=== PATIENT | female | born 1940 | race Caucasian/White ===

== ENCOUNTER → 2016-08-21 | Outpatient (CLI) | payer MEDICARE, OTHER ==
--- NOTE | 2016-08-21 16:50 | RAD ---
DATE: 08/21/2016 EXAM: DIGITAL SCREEN BILAT W/CAD HISTORY: Routine screening COMPARISON: 08/19/2015 This study was interpreted with the benefit of Computerized Aided Detection (CAD). FINDINGS: The breasts are predominantly fatty replaced. No new or enlarging breast densities are seen. A few scattered benign type calcifications are present. No suspicious microcalcifications have developed. IMPRESSION: Stable mammograms without evidence of malignancy. BI-RADS CATEGORY: 2 BENIGN FINDING(S) RECOMMENDED FOLLOW-UP: 12M 12 MONTH FOLLOW-UP PQRS compliance statement: Patient information was entered into a reminder system with a target due date for the next mammogram. Mammography is a sensitive method for finding small breast cancers, but it does not detect them all and is not a substitute for careful clinical examination. A negative mammogram does not negate a clinically suspicious finding and should not result in delay in biopsying a clinically suspicious abnormality. "Our facility is accredited by the [employer] Mammography [employer]."
== END | disposition home or self-care (01) ==
LOC: MAMMO 13:53
PROVIDERS: ATTEND Family Medicine
DX: Z12.31 Encounter for screening mammogram for malignant neoplasm of breast (principal)
CPT/HCPCS: G0202; 77067

== ENCOUNTER → 2017-08-22 | Outpatient (CLI) | payer MEDICARE, OTHER | END | disposition home or self-care (01) | LOC: MAMMO 08:50 | DX: Z12.31 Encounter for screening mammogram for malignant neoplasm of breast (principal) | CPT/HCPCS: 77063; 77067 ==

== ENCOUNTER → 2018-08-27 | Outpatient (CLI) | payer MEDICARE ==
[2018-01-31 15:00] VITALS: BP 170/93
[~2018-08-27] MED LIST: ASPI-630 PO; LATA2.5D3 EACHEYE; LEVO50TA5 PO
--- NOTE | 2018-08-27 10:14 | RAD ---
DATE: 08/27/2018 EXAM: MAMMO MARYANA SCREENING BILATERAL HISTORY: Routine screening COMPARISON: 08/22/2017 This study was interpreted with the benefit of Computerized Aided Detection (CAD). Breast Density: FATTY The breast parenchyma is primarily fatty replaced. Breast parenchyma level density A. FINDINGS: 2-D and 3-D tomosynthesis imaging was performed in CC and MLO projections. There is a 3-4 mm smooth superficial nodule in the lateral aspect of the left breast as best seen on CC tomosynthesis images #32. No spiculated mass or architectural distortion is evident. Minimal benign type calcifications present. No suspicious microcalcifications are evident. IMPRESSION: Small superficial left breast nodule which may be skin related. Sonographic evaluation is suggested. BI-RADS CATEGORY: 0 INCOMPLETE: NEEDS ADDITIONAL IMAGING EVALUATION AND/OR PRIOR MAMMOGRAMS FOR COMPARISON. RECOMMENDED FOLLOW-UP: ADD ADDITIONAL IMAGING PQRS compliance statement: Patient information was entered into a reminder system with a target due date for the next mammogram. Mammography is a sensitive method for finding small breast cancers, but it does not detect them all and is not a substitute for careful clinical examination. A negative mammogram does not negate a clinically suspicious finding and should not result in delay in biopsying a clinically suspicious abnormality. "Our facility is accredited by the [employer] Mammography [employer]."
== END | disposition home or self-care (01) ==
LOC: MAMMO 07:35
PROVIDERS: ATTEND Family Medicine
DX: Z12.31 Encounter for screening mammogram for malignant neoplasm of breast (principal); N63.20 Unspecified lump in the left breast, unspecified quadrant
CPT/HCPCS: 77063; 77067

== ENCOUNTER → 2018-09-02 | Outpatient (CLI) | payer MEDICARE ==
[2018-01-31 15:00] VITALS: BP 170/93
--- NOTE | 2018-09-02 14:33 | RAD ---
DATE: 09/02/2018 EXAM: DIGITAL DIAGNOSTIC LT, BREAST LEFT HISTORY: Abnormal mammogram COMPARISON: 08/27/2018 screen mammographic exam This study was interpreted with the benefit of Computerized Aided Detection (CAD). Breast Density: SCATTERED The breast parenchyma shows scattered fibroglandular densities. Breast parenchyma level B. FINDINGS: Ultrasound imaging of the left outer breast was performed. There is no mass or cyst identified to correspond with the finding of concern. Diagnostic mammographic imaging of the left breast was performed in the CC and MLO projections following placement of a marker at a mole on the skin surface. This finding corresponds to the screening mammographic exam mass which was questioned. IMPRESSION: There is no masses. A skin mole corresponds to the mammographic abnormality. BI-RADS CATEGORY: 1 NEGATIVE RECOMMENDED FOLLOW-UP: 12M 12 MONTH FOLLOW-UP PQRS compliance statement: Patient information was entered into a reminder system with a target due date in one year for the next mammogram. Mammography is a sensitive method for finding small breast cancers, but it does not detect them all and is not a substitute for careful clinical examination. A negative mammogram does not negate a clinically suspicious finding and should not result in delay in biopsying a clinically suspicious abnormality. "Our facility is accredited by the [employer]ammography [employer]."
== END | disposition home or self-care (01) ==
LOC: US 11:43
PROVIDERS: ATTEND Family Medicine
DX: R92.2 Inconclusive mammogram (principal)
CPT/HCPCS: 76641; 77065

== ENCOUNTER → 2018-11-19 | Outpatient (CLI) | payer MEDICARE ==
[2018-01-31 15:00] VITALS: BP 170/93
--- NOTE | 2018-11-19 13:07 | KCIC ---
EXAM: Dual energy x-ray absorptiometry (DEXA). HISTORY: Postmenopausal female presents for osteoporosis screening. COMPARISON: 12/15/2011. TECHNIQUE: Dual energy x-ray absorptiometry of the lumbar spine and left hip was performed. Calculation of bone mineral density based on standard deviations above or below the expected young adult normal value (T-score) was completed. FINDINGS: The average bone mineral density in the 1st through 4th lumbar vertebrae is 1.174 g/cmxcm, corresponding with a T-score of 1.2. There has been a 0.6% increase in density of the lumbar spine compared to the prior study. The average total bone mineral density in the left hip is 0.801 g/cmxcm, corresponding with a T-score of -1.2. There is between 15% decrease in density of the left hip compared to the prior study. IMPRESSION: 1. Osteopenia measured at the left hip. 2. Normal bone mineral density measured at the lumbar spine. Note: Definitions established by the World Health Organization: 1. Normal: T-score is -1.0 or above. 2. Osteopenia: T-score is between -1.0 and -2.5 . 3. Osteoporosis: T-score is -2.5 or below. Electronically signed by: Nancy Thorpe MD (11/19/2018 1:04 PM) [place] [id number]
== END | disposition home or self-care (01) ==
LOC: KCIC DEXA 08:36
PROVIDERS: ATTEND Nurse Practitioner Family
DX: Z13.820 Encounter for screening for osteoporosis (principal); M85.88 Other specified disorders of bone density and structure, other site; N95.9 Unspecified menopausal and perimenopausal disorder
CPT/HCPCS: 77080

== ENCOUNTER → 2019-09-11 | Outpatient (CLI) | payer MEDICARE ==
[2018-01-31 15:00] VITALS: BP 170/93
--- NOTE | 2019-09-11 16:57 | RAD ---
EXAMINATION: Bilateral screening mammogram, 09/11/2019 9:45 AM CLINICAL INDICATION: 78-year-old woman presenting for screening mammogram. COMPARISON: 08/27/2018 TECHNIQUE: Digital bilateral full-field CC and MLO views, and CC and MLO tomosynthesis views of the breasts were obtained. CAD was utilized. FINDINGS: The breasts are almost entirely fatty. There is no mass, suspicious calcification, or architectural distortion. IMPRESSION: 1. No mammographic evidence of malignancy. 2. BI-RADS 1: Negative. 3. Routine annual screening mammogram is recommended in 1 year. The patient will receive a reminder letter by mail when she is due for her next exam. Electronically signed by: Dolly Champion MD (09/11/2019 4:54 PM) [id number]
== END | disposition home or self-care (01) ==
LOC: MAMMO 09:08
PROVIDERS: ATTEND Family Medicine
DX: Z12.31 Encounter for screening mammogram for malignant neoplasm of breast (principal)
CPT/HCPCS: 77063; 77067

== ENCOUNTER → 2020-06-28 | Outpatient (CLI) | payer MEDICARE ==
[2018-01-31 15:00] VITALS: BP 170/93
== END ==
LOC: LAB 13:09
PROVIDERS: ATTEND Internal Medicine Cardiovascular Disease
DX: Z01.812 Encounter for preprocedural laboratory examination (principal); R07.9 Chest pain, unspecified; Z20.822 Contact with and (suspected) exposure to COVID-19
CPT/HCPCS: U0003

== ENCOUNTER 2020-07-02 06:50 | Outpatient (CLI) | payer MEDICARE ==
[~2020-07-02] VITALS: Ht 165.1 cm; Wt 104.3 kg
[2020-07-02] VITALS (10 sets, daily range): BP systolic 119–184; BP diastolic 46–91
[2020-07-02] MEDS ORDERED: LIDOCAINE 1% PF 2 ML VIAL. ONE (07:40)
[2020-07-02] MEDS ORDERED: IODIXANOL 320 MG/ML 100 ML VIAL. ONE (07:40)
[2020-07-02 07:51] LABS: HEMATOCRIT 46.2 % (36.0-47.0); HEMOGLOBIN 15.6 g/dL (12.0-15.5); RED BLOOD COUNT 5.25 x10^6/uL (3.50-5.40); RED CELL DISTRIBUTION WIDTH 14.1 % (11.5-14.5); WHITE BLOOD COUNT 9.4 x10^3/uL (4.0-11.0)
[2020-07-02] MEDS ORDERED: METO25TA4 PO (07:51)
[2020-07-02 07:58] LABS: PROTHROMBIN TIME PATIENT 12.6 SEC (11.7-14.0)
[2020-07-02 08:18] LABS: CALCIUM 8.5 mg/dL (8.5-10.1); CREATININE 0.8 mg/dL (0.6-1.0); GFR 69.2; POTASSIUM 4.4 mmol/L (3.5-5.1)
[2020-07-02] MEDS ORDERED: fentaNYL PF VIAL 100 MCG/2 ML VIAL ONE (10:35)
[2020-07-02] MEDS ORDERED: NITROGLYCERIN 200 MCG/2 ML SYRINGE FOR CATH/VASC LAB. ONE (10:35)
[2020-07-02] MEDS ORDERED: MIDAZOLAM HCL/PF 2 MG/2 ML VIAL. ONE ×2 (10:35→11:16)
[2020-07-02] MEDS ORDERED: VERAPAMIL 5 MG/2 ML VIAL. ONE (10:35)
[2020-07-02] MEDS ORDERED: HEPARIN for IV BOLUS 10,000 UNIT/10 ML VIAL. ONE (10:35)
[2020-07-02] MEDS ORDERED: NITROGLYCERIN 200 MCG/2 ML SYRINGE FOR CATH/VASC LAB. IART ONE (10:45)
[2020-07-02] MEDS ORDERED: fentaNYL PF VIAL 100 MCG/2 ML VIAL IV ONE (10:45)
[2020-07-02] MEDS ORDERED: MIDAZOLAM HCL/PF 2 MG/2 ML VIAL. IV ONE (10:45)
[2020-07-02] MEDS ORDERED: IODIXANOL 320 MG/ML 100 ML VIAL. IART ONE (10:45)
[2020-07-02] MEDS ORDERED: HEPARIN for IV BOLUS 10,000 UNIT/10 ML VIAL. IART ONE (10:45)
[2020-07-02] MEDS ORDERED: VERAPAMIL 5 MG/2 ML VIAL. IART ONE (10:45)
[2020-07-02] MEDS ORDERED: LIDOCAINE 1% PF 2 ML VIAL. INJ ONE (10:45)
[2020-07-02] MEDS ORDERED: CONTRAST GIVEN. MC PRN (11:00)
--- NOTE | 2020-07-02 11:10 | PDOC ---
MODERATE SEDATION ASSESSMENT RISKS/ALTERNATIVES Risks/Alternatives Risks and alternatives of this type of sedation and procedure discussed with: RISK/ALTERNATIVES: Patient H & P ON CHART H & P H & P on chart and reviewed for co-morbid conditions and appropriate labs. H&P ON CHART: Yes STATUS PREG STATUS ASSESSED: N/A MEDS/ALLERGIES REVIEWED Meds/Allergies Reviewed Medications and Allergies including time and route of recently administered narcotics and sedatives. MEDS/ALLERGIES REVIEWED: Yes ASA RATING ASA RATING: II AIRWAY ASSESSMENT Airway Assessment Airway patency, oral function limitations, presence of caps, crowns, dentures, partials, and ability to extend neck assessed. AIRWAY ASSESSMENT: Yes MALLAMPATI SCORE MALLAMPATI SCORE: II PRE-SEDATION ASSESSMENT PRE-SEDATION ASSESSMENT: Yes CADY COTO MD Jul 02, 2020 11:10
[2020-07-02] MEDS ORDERED: NITROGLYCERIN SUBLINGUAL 0.4 MG BOTTLE OF 25. SL PRN (12:00)
[2020-07-02] MEDS ORDERED: IV 1/2 NORMAL SALINE 1,000 ML IV SCH (12:00)
--- NOTE | 2020-07-02 12:02 | CARD ---
MR#: [id number] Date of Study: 07/02/2020 Ordering Physician: CADY APONTE, Referring Physician: CADY APONTE, Tech: RT Aramis(R) APPROVED REPORT Technologist: RT Aramis(R) Nurse: Luz Maria Buchanan RN Procedure(s) performed: Left heart catheterization, selective coronary angiography and left ventricul ography via right transradial approach MODERATE SEDATION TIME: 30 MINUTES FLUORO TIME: 3.0 MIN DOSE: 53.04 [id number] CONTRAST: 95CC VISI INDICATION The indication(s) include : Unstable angina, abnormal nuclear stress test with transient ischemic dil atation. [facility] Clinical Frailty Scale [facility] Clinical Frailty Scale: Managing Well Heart Failure Heart Failure: No CASE TECHNIQUE IV conscious sedation was used throughout procedure with appropriate monitoring and was performed in the presence of a registered nurse who was an independent trained observer other than the physician p erforming the procedure. During this case, Fluoroscopy and low osmolar contrast were used for imaging . Specimen(s) Removed: No Estimated Blood loss: 10 cc's. PROCEDURE NARRATIVE After explaining the risks, benefits and alternative options, informed consent was obtained from horacio ent. Patient was brought to the cardiac Athletic Team Physician and right wrist was prepped and draped in the usual fashion after confirming a positive modified Sae's test. Arterial access was obtained in the righ t radial artery and a 6 Irish sheath was inserted. 6 Irish Reji catheter was used to perform jimmy ective angiography of the left and right coronary arteries. 6 Irish pigtail catheter was used to pe rform left ventriculography. Patient tolerated the procedure well. Hemostasis was achieved using TR band. There were no immediate complications. The following findings were noted. FINDINGS 1. Hemodynamics: Left ventricular end-diastolic pressure of 23 mmHg. No pullback gradient across th e aortic valve. 2. Left ventriculography: Normal left ventricle systolic function with ejection fraction estimated at 60%. No significant mitral regurgitation seen. 3. Coronary angiography: a. The left main coronary artery arose from the left sinus of Valsalva, gave rise to the left anteri or descending and left circumflex arteries and did not show any significant stenosis. b. The left anterior descending artery showed 70% stenosis in the midsegment. c. The left circumflex artery showed 30% stenosis in the proximal segment and 80% stenosis in the mi dsegment. d. The right coronary artery was a large and dominant vessel arising from the right sinus of Valsalv a showed 100% chronic total occlusion in the mid segment with distal reconstitution of posterior desc ending and posterolateral branches from left to right collaterals. Conclusion 1. Severe three-vessel coronary disease 2. Normal left ventricular systolic function with ejection fraction estimated at 60% Recommendations Cardiothoracic surgery team referral for possible coronary artery bypass surgery Signed by : Cady Aponte, Electronically Approved : 07/02/2020 12:01:52
--- NOTE | 2020-07-02 13:40 | NUR ---
PIV removed, instructions provided on site care, sedation. Patient and verbalized understanding. No bleeding at access site. TR band removed, armboard re-applied. Appointment made w/ Dr. Walters 07/07 at [facility]. VS stable. Taken to vehicle via wheelchair, driving.
== END 2020-07-02 13:54 | disposition home or self-care (01) ==
LOC: CCL 06:50
PROVIDERS: ATTEND Internal Medicine Cardiovascular Disease
DX: I20.0 Unstable angina (principal); R94.39 Abnormal result of other cardiovascular function study; I10 Essential (primary) hypertension; E78.00 Pure hypercholesterolemia, unspecified; Z86.73 Personal history of transient ischemic attack (TIA), and cerebral infarction without residual deficits; Z79.899 Other long term (current) drug therapy; Z98.890 Other specified postprocedural states; Z87.891 Personal history of nicotine dependence; Z72.89 Other problems related to lifestyle; Z90.710 Acquired absence of both cervix and uterus; Z88.0 Allergy status to penicillin; Z88.2 Allergy status to sulfonamides
CPT/HCPCS: 36415; 80048; 85027; 85610; 93458; 99152; 99153; C1769; C1894; J1644; J2250; J3010; J3490; Q9967

== ENCOUNTER → 2020-07-21 | Outpatient (CLI) | payer MEDICARE ==
[2020-07-02 13:30] VITALS: BP 128/68
[~2020-07-21] MED LIST changes: +IOHEXOL 350 MG/ML 100 ML VIAL. IV ONE; +LISI10TA16 PO; +METO25TA4 PO
--- NOTE | 2020-07-22 08:19 | RAD ---
US VENOUS MAPPING BILAT History: Reason: PRE OP TESTING / Spl. Instructions: / History: Comparison: None. Discussion: Multiple longitudinal and transverse high resolution real-time images of the superficial venous syste m of bilateral lower extremity were obtained. Right greater saphenous vein: Origin measures 5.7 mm tapering to 2.2 mm. No occlusion. Right small saphenous vein: Origin measures 2.1 mm tapering to 1.9 mm. No occlusion. Left greater saphenous vein: Origin measures 6.9 mm tapering to 2.0 mm. No occlusion. Left small saphenous vein: Origin measures 3.1 mm tapering to 1.8 mm. No occlusion. Impression: 1. Preoperative evaluation with measurements as described above. Electronically signed by: Jono Muñoz DO (07/22/2020 8:16 AM) [id number]
--- NOTE | 2020-07-22 08:20 | RAD ---
US VENOUS MAPPING BILAT History: Reason: PRE OP TESTING / Spl. Instructions: / History: Comparison: None. Discussion: Multiple longitudinal and transverse high resolution real-time images of the superficial venous syste m of the bilateral upper extremities were obtained Right cephalic vein: Origin measures 2.1 mm tapering to 2.0 mm. No occlusion. Right basilic vein: Origin measures 3.9 mm tapering to 1.3 mm. Left cephalic vein: Origin measures 3.2 mm tapering to 1.2 mm within the proximal forearm. The mid to distal forearm portion is not visualized. Left basilic vein: Nonvisualization of the left basilic vein. Impression: 1. Preoperative evaluation with measurements as described above. 2. Nonvisualization of the left basilic vein and portions of the distal left cephalic vein. Electronically signed by: Jono Muñoz DO (07/22/2020 8:17 AM) [id number]
--- NOTE | 2020-07-22 08:34 | RAD ---
CTA HEAD AND NECK W/WO CONTRAST History:Reason: PRE-OP TESTING / Spl. Instructions: 75ML OMNI 350 / History: Technique: After bolus of intravenous contrast, volumetric CT data acquisition was acquired of the he ad and neck. Multiplanar reconstruction images to include MIP and 3-D reconstruction images are submi tted. Exposure: One or more of the following individualized dose reduction techniques were utilized for thi s examination: 1. Automated exposure control 2. Adjustment of the mA and/or kV according to patient size 3. Use of iterative reconstruction technique. Comparison: January 30, 2018 Any determination of stenosis is based on NASCET criteria. Head CTA: ICA: Moderate atheromatous plaque within the carotid siphons with mild multifocal narrowing. MCA: Irregularity of the bilateral middle cerebral arteries with mild narrowing of the M1 segment on the left. No occlusion. LACIE: No stenosis, occlusion or aneurysm. [employer] SALES CONSULTANT: High-grade stenosis to near occlusion of the right P2 segment (series 5 image 97). Additional ir regularity and narrowing of the bilateral posterior cerebral arteries due to atheromatous plaque. Basilar artery: Multifocal narrowing and irregularity of the basilar artery moderate narrowing mid as pect (series 3 image 216). Distal vertebral arteries: No stenosis, occlusion or aneurysm. Patent superior sagittal, transverse, straight and sigmoid venous sinuses. CT angiogram neck: Aortic arch: Moderate atheromatous plaque within the aortic arch and branch vessels. Common carotid arteries: No stenosis, occlusion or dissection. Internal carotid arteries: Postoperative changes bilateral carotid endarterectomies. Irregularity of the left proximal internal carotid artery, may relate to ulcerative plaque or small focal chronic or dissection. Not definitely seen on the previous examination although the current examination is brea r contrast bolus timing. No significant stenosis. No occlusion. External carotid arteries: Patent Vertebral arteries: Moderate focal narrowing of the left vertebral artery origin. Mild additional ivone rowing of the left mid cervical artery. Mild narrowing of the right vertebral artery origin. Imaged lung apices are unremarkable. Unchanged moderate prominent submandibular lymph nodes. Bones: Multilevel cervical spondylosis most prominent C5-C6 and C6-C7. Impression: CT angiogram head: 1. Moderate intracranial atheromatous plaque. 2. High-grade narrowing to near occlusion of the right P2 segment, unchanged. 3. Irregularity with moderate narrowing of the basilar artery due to atheromatous plaque, similar co mpared to prior although better evaluated currently due to improved contrast bolus timing. 4. Additional multifocal mild intracranial arterial narrowings. CT angiogram neck: 1. Postoperative changes bilateral carotid endarterectomies. 2. Irregularity of the left proximal internal carotid artery, may relate to chronic focal dissection or ulcerative plaque. No occlusion. 3. Moderate narrowing of the left vertebral artery origin, increased compared to prior. 4. Moderate atheromatous plaque within the aortic arch. Electronically signed by: Jono Muñoz DO (07/22/2020 8:32 AM) [id number]
== END ==
LOC: CT 12:55
PROVIDERS: ATTEND Internal Medicine Cardiovascular Disease
DX: Z01.818 Encounter for other preprocedural examination (principal); I65.1 Occlusion and stenosis of basilar artery; I70.0 Atherosclerosis of aorta; I10 Essential (primary) hypertension; K82.8 Other specified diseases of gallbladder; M47.812 Spondylosis without myelopathy or radiculopathy, cervical region; Z87.891 Personal history of nicotine dependence
CPT/HCPCS: 70496; 70498; 93970; Q9967

== ENCOUNTER → 2020-07-22 | Outpatient (CLI) | payer MEDICARE ==
[2020-07-02 13:30] VITALS: BP 128/68
[~2020-07-22] MED LIST changes: -LISI10TA16 PO
--- NOTE | 2020-07-22 15:10 | RAD ---
PQRS Compliance Statement: One or more of the following individualized dose reduction techniques were utilized for this examinat ion: 1. Automated exposure control 2. Adjustment of the mA and/or kV according to patient size 3. Use of iterative reconstruction technique CTA CHEST 07/22/2020 8:[address] angiography chest with contrast 07/22/2020 8:56 AM INDICATION: Preoperative CABG COMPARISON: None available TECHNIQUE: Axial CT images of the chest were obtained after the intravenous administration of nonioni c contrast. Coronal and sagittal reformats are provided. Maximum intensity projection images of the t horacic vasculature are provided. FINDINGS: The thyroid gland is normal in appearance. Subcarinal lymph node measures 0.8 cm. Right hilar lymph n ode measures 0.7 cm (series 3, image 45) There are no pathologically enlarged axillary, mediastinal o r hilar lymph nodes. The heart size is within normal limits. No significant pericardial effusion. Aor tic valve measures 2.65 cm. Sinus of Valsalva measures 3.4 cm. Sinotubular junction measures 2.5 cm. Ascending thoracic aorta measures up to 2.9 cm. Calcified plaque is identified at though origins of t he brachiocephalic vessels. There is calcified and noncalcified atheromatous plaque involving the davy gin the left subclavian artery with mild stenosis. Calcified and noncalcified atheromatous plaque is identified along the aortic arch and descending thoracic aorta. Origin of the celiac axis is widely p atent. Mild stenosis of the origin of the superior mesenteric artery secondary to noncalcified athero matous plaque. Three-vessel coronary artery vascular calcifications are identified. There there are no filling defects within the pulmonary arterial system to suggest acute or chronic p ulmonary embolus. There are no suspicious solid noncalcified pulmonary nodules. There is bibasilar subsegmental atelect asis. There are no pulmonary infiltrates. There are no pleural effusions. No pulmonary vascular conge stion or pneumothorax. Call cystectomy changes are present. Postoperative changes from gastric bypass.. No suspicious osseou s lesions are visualized. IMPRESSION: Coronary artery vascular calcifications are identified. Moderate to advanced calcified noncalcified a theromatous plaque involving the thoracic aorta. No aortic dissection or aneurysm. Electronically signed by: Gale Singer MD (07/22/2020 3:08 PM) [id number]
== END ==
LOC: CT 09:23
PROVIDERS: ATTEND Internal Medicine Cardiovascular Disease
DX: Z01.818 Encounter for other preprocedural examination (principal); I25.10 Atherosclerotic heart disease of native coronary artery without angina pectoris; J98.11 Atelectasis; I70.0 Atherosclerosis of aorta; Z90.49 Acquired absence of other specified parts of digestive tract
CPT/HCPCS: 71275; Q9967

== ENCOUNTER 2020-08-05 12:03 | Emergency (ER) | payer MEDICARE ==
[~2020-08-05] VITALS: Ht 157.5 cm; Wt 102.0 kg
[~2020-08-05 12:03] MED LIST changes: -IOHEXOL 350 MG/ML 100 ML VIAL. IV ONE
--- NOTE | 2020-08-05 12:44 | RAD ---
XR CHEST 2V History: Reason: chest pain, left upper chest since last night / Spl. Instructions: / History: Comparison: January 30, 2018 Findings: No consolidation or pleural effusion. Normal heart size. No pneumothorax. Prominent left epicardial f at pad. Impression: 1. No acute cardiopulmonary process. Electronically signed by: Jono Muñoz DO (08/05/2020 12:42 PM) [id number]
[2020-08-05 12:49] LABS: BASO # 0.1 x10^3/uL (0.0-0.2); BASO % 1 % (0-3); EOS # 0.2 x10^3/uL (0.0-0.7); EOS % 2 % (0-3); HEMATOCRIT 45.9 % (36.0-47.0); HEMOGLOBIN 15.6 g/dL (12.0-15.5); LYMPH # 4.5 x10^3/uL (1.0-4.8); LYMPH % 43 % (24-48); MEAN CORPUSCULAR HEMOGLOBIN 30 pg (25-35); MEAN CORPUSCULAR HGB CONC 34 g/dL (31-37); MEAN CORPUSCULAR VOLUME 88 fL (79-100); MONO # 0.9 x10^3/uL (0.0-1.1); MONO % 9 % (0-9); NEUT # 4.8 x10^3/uL (1.8-7.7); NEUT % 46 % (31-73); PLATELET COUNT 322 x10^3/uL (140-400); RED BLOOD COUNT 5.24 x10^6/uL (3.50-5.40); RED CELL DISTRIBUTION WIDTH 14.2 % (11.5-14.5); WHITE BLOOD COUNT 10.5 x10^3/uL (4.0-11.0)
[2020-08-05 13:07] LABS: CALCIUM 8.9 mg/dL (8.5-10.1); CREATININE 0.7 mg/dL (0.6-1.0); GFR 80.7; POTASSIUM 4.2 mmol/L (3.5-5.1)
[2020-08-05] MEDS ORDERED: CONTRAST GIVEN. MC PRN (13:45)
[2020-08-05] MEDS ORDERED: IOHEXOL 350 MG/ML 100 ML VIAL. IV ONE (13:45)
[2020-08-05] MEDS ORDERED: LABETALOL 20 MG/4 ML DISP.SYRIN. IVP ONE (13:45)
--- NOTE | 2020-08-05 15:29 | RAD ---
STUDY: CT angiography of the head and neck INDICATION: Neck pain, history of stent COMPARISON: CTA head and neck 07/11/2020 TECHNIQUE: Axial CT imaging of the head and neck utilizing angiography protocol and performed after t he intravenous administration of 75 mL Omnipaque 350 contrast. Multiplanar reformats and 3D MIP acqui sitions were obtained. Encountered areas of stenosis are measured per NASCET criteria. One or more of the following individualized dose reduction techniques were utilized for this examinat ion: 1. Automated exposure control 2. Adjustment of the mA and/or kV according to patient size 3. Use of iterative reconstruction technique. FINDINGS: CTA NECK: Arch/Proximal Great Vessels: Heart is normal in configuration. There is moderate calcified atheroscle rosis. Carotid Bifurcation/Cervical ICA: Common carotid arteries are patent. There are surgical changes of b ilateral carotid endarterectomies. Small intimal flap in the proximal left internal carotid artery is unchanged from 07/21/2020 (image 157, series 3). No occlusion or significant stenosis. The right inte rnal carotid artery is normal. Vertebral Arteries: Vertebral arteries are patent. No new abnormality in the visualized portion of m[place] of [place]. Lung apices are clear. There is deg enerative disc disease, greatest at C5-C6 and C6-C7. Submandibular lymph nodes are unchanged in appea salvador. Visualized portion of the skull base is unremarkable. IMPRESSION: Surgical changes of bilateral carotid endarterectomies. Unchanged short intimal flap in t he proximal cervical left internal carotid artery. No new abnormality. Electronically signed by: Dolly Champion MD (08/05/2020 3:27 PM) [id number]
[2020-08-05 15:30] VITALS: BP 165/75
--- NOTE | 2020-08-05 15:36 | ED.ADGEN ---
Past Medical History Past Medical History: High Cholesterol, Hypothyroid, TIA Past Surgical History: Gastric Bypass, Hysterectomy, Other Additional Past Surgical Histo: BLADDER SLING, STENTS IN CAROTID Smoking Status: Former Smoker Alcohol Use: Occasionally Drug Use: None General Adult EDM: Chief Complaint: CHEST PAIN HPI: HPI: Patient is a 79-year-old female past medical history of bilateral carotid stents and coronary artery disease who presents to the emergency room complaining of left-sided lower neck pain. Patient states it has been intermittent since last night. She states it feels like a leaky rushing pain. Due to her stents there she was concerned that it may be something serious. She states that she is to have a CABG done in August. She denies any chest pain, cough, URI symptoms, abdominal pain, nausea, vomiting, sweating. She has had some shortness of breath. This is been ongoing for quite some time. Review of Systems: Review of Systems: Complete ROS is negative unless otherwise documented in HPI Current Medications: Current Medications Medications (Trade) Dose Ordered Sig/Irene Start Time Stop Time Status Last Admin Dose Admin Info (CONTRAST GIVEN -- Rx MONITORING) 1 each PRN DAILY PRN 08/05/20 13:45 08/05/20 16:25 DC Iohexol (Omnipaque 350 Mg/ml) 75 ml 1X ONCE 08/05/20 13:45 08/05/20 13:46 DC 08/05/20 13:56 75 ML Labetalol HCl (Normodyne Iv Push) 10 mg 1X ONCE 08/05/20 13:45 08/05/20 13:46 DC 08/05/20 14:15 10 MG Allergies: Allergies: Allergies Coded Allergies Type Severity Reaction Last Updated Verified Penicillins Allergy Intermediate Rash 01/30/18 Yes Sulfa (Sulfonamide Antibiotics) Allergy Intermediate Swelling 01/30/18 Yes Physical Exam: PE: General: Awake, alert, NAD. Well Nourished, well hydrated. Cooperative HEENT: Atraumatic, EOMI, PERRL, airway patent, moist oral mucosa Neck: Supple, trachea midline Respiratory: CTA bilaterally, normal effort, no wheezing/crackles CV: RRR, no murmur, cap refill <2 GI: Soft, nondistended, nontender, no masses MSK: No obvious deformities Skin: Warm, dry, intact Neuro: A&O x3, speech NL, sensory and motor grossly intact, no focal deficits Psych: Normal affect, normal mood, not suicidal or homicidal Current Patient Data: Labs: Laboratory Tests Test 08/05/20 12:40 White Blood Count 10.5 x10^3/uL (4.0-11.0) Red Blood Count 5.24 x10^6/uL (3.50-5.40) Hemoglobin 15.6 g/dL (12.0-15.5) H Hematocrit 45.9 % (36.0-47.0) Mean Corpuscular Volume 88 fL (79-100) Mean Corpuscular Hemoglobin 30 pg (25-35) Mean Corpuscular Hemoglobin Concent 34 g/dL (31-37) Red Cell Distribution Width 14.2 % (11.5-14.5) Platelet Count 322 x10^3/uL (140-400) Neutrophils (%) (Auto) 46 % (31-73) Lymphocytes (%) (Auto) 43 % (24-48) Monocytes (%) (Auto) 9 % (0-9) Eosinophils (%) (Auto) 2 % (0-3) Basophils (%) (Auto) 1 % (0-3) Neutrophils # (Auto) 4.8 x10^3/uL (1.8-7.7) Lymphocytes # (Auto) 4.5 x10^3/uL (1.0-4.8) Monocytes # (Auto) 0.9 x10^3/uL (0.0-1.1) Eosinophils # (Auto) 0.2 x10^3/uL (0.0-0.7) Basophils # (Auto) 0.1 x10^3/uL (0.0-0.2) Sodium Level 142 mmol/L (136-145) Potassium Level 4.2 mmol/L (3.5-5.1) Chloride Level 106 mmol/L (98-107) Carbon Dioxide Level 25 mmol/L (21-32) Anion Gap 11 (6-14) Blood Urea Nitrogen 25 mg/dL (7-20) H Creatinine 0.7 mg/dL (0.6-1.0) Estimated GFR (Cockcroft-Gault) 80.7 Glucose Level 101 mg/dL (70-99) H Calcium Level 8.9 mg/dL (8.5-10.1) Troponin I Quantitative < 0.017 ng/mL (0.000-0.055) RY-Xfs-H-Type Natriuretic Peptide 297 pg/mL (0-449) Laboratory Tests 08/05/20 12:40 Laboratory Tests 08/05/20 12:40 Vital Signs: Vital Signs Date Time Temp Pulse Resp B/P (MAP) Pulse Ox O2 Delivery O2 Flow Rate FiO2 08/05/20 15:30 64 16 95 08/05/20 14:15 204/82 08/05/20 12:25 97.7 Room Air 97.7 EKG: EKG: [] Heart Score: C/O Chest Pain: Yes HEART Score for Chest Pain: HEART Score for Chest Pain Response (Comments) Value History Slighlty/Non-Suspicious 0 ECG Normal 0 Age > 65 2 Risk Factors >3 Risk Factors or Hx CAD 2 Troponin < Normal Limit 0 Total 4 Risk Factors: Risk Factors: DM, Current or recent (<one month) smoker, HTN, HLP, family history of CAD, obesity. Risk Scores: Score 0 - 3: 2.5% MACE over next 6 weeks - Discharge Home Score 4 - 6: 20.3% MACE over next 6 weeks - Admit for Clinical Observation Score 7 - 10: 72.7% MACE over next 6 weeks - Early Invasive Strategies Radiology/Procedures: Radiology/Procedures: [] Course & Med Decision Making: Course & Med Decision Making Pertinent Labs and Imaging studies reviewed. (See chart for details) Patient is 79-year-old female who presents to the emergency room complaining of left-sided neck pain. Patient does not have any radiation of pain into her back, shoulder, chest. It is possible this could still be atypical cardiac pain but this is less likely. Patient does have carotic stents which she is concerned about possible issues with these causing her pain. A CT angio of the neck will be done. Cardiac lab work is negative. Patient is hypertensive which is new. Patient was given labetalol here in the emergency room. Patient has complete resolution of symptoms with blood pressure control. CT does not show any occlusion of her carotid stent. Troponin is negative. I have discussed her case with the surgeon who will be doing her CABG on Sunday. She will be started on lisinopril. They will follow up with her tomorrow. Patient's test results and vitals while in the ED were fully reviewed and discussed with the patient. Patient is stable and at this time does not need admission to the hospital. We have discussed strict return precautions and the importance of following up with their Primary Care Physician. Patient stated understanding and was given an opportunity to ask any questions. Patient is in agreement with plan. Dragon Disclaimer: Dragon Disclaimer: This electronic medical record was generated, in whole or in part, using a voice recognition dictation system. Departure Departure Impression: Primary Impression: Neck pain Additional Impression: Hypertension Disposition: HOME / SELF CARE / HOMELESS Condition: IMPROVED Referrals: AMANUEL SANCHEZ MD (PCP) Patient Instructions: Hypertension Scripts Lisinopril (LISINOPRIL) 10 Mg Tablet 1 TAB PO DAILY, #30 TAB 0 Refills Prov: JOO MARRERO MD 08/05/20 Problem Qualifiers JOO MARRERO MD Aug 05, 2020 15:36
[2020-08-05] MEDS ORDERED: LISI10TA16 PO (16:06)
== END 2020-08-05 16:24 | disposition home or self-care (01) ==
LOC: ER 12:03
DX: M54.2 Cervicalgia (principal); R06.02 Shortness of breath; I11.9 Hypertensive heart disease without heart failure; E78.00 Pure hypercholesterolemia, unspecified; E03.9 Hypothyroidism, unspecified; Z87.891 Personal history of nicotine dependence; Z90.710 Acquired absence of both cervix and uterus; Z98.890 Other specified postprocedural states; Z88.0 Allergy status to penicillin; Z88.2 Allergy status to sulfonamides
CPT/HCPCS: 36415; 70498; 71046; 80048; 83880; 84484; 85025; 93005; 96374; 99285; J3490; Q9967

== ENCOUNTER → 2020-12-02 | Outpatient (CLI) | payer MEDICARE ==
[~2020-12-02] MED LIST changes: +LISI10TA16 PO
--- NOTE | 2020-12-02 12:15 | RAD ---
EXAM: BILATERAL DIGITAL 3D SCREENING MAMMOGRAPHY. HISTORY: Routine mammographic screening. TECHNIQUE: Bilateral digital 3D and tomographic images were obtained in CC and MLO projections. Compu ter-aided detection was applied. COMPARISON: 09/11/2019, 09/02/2018. COMPOSITION: B. There are scattered areas of fibroglandular density. FINDINGS: There are no suspicious masses, microcalcifications or architectural distortion. The parenc hymal pattern is stable. Scattered calcifications are benign. BI-RADS CATEGORY 2: Benign. RECOMMENDATION: 1. Routine screening mammography in one year. If mammography demonstrates dense breast tissue (heterogenously dense or extremely dense, category C or D), which could hide abnormalities, and if other risk factors for breast cancer have been identifi ed, supplemental screening tests that may be suggested by the ordering physician may be of benefit. D ense breast tissue, in and of itself, is a relatively common condition. Therefore, this information i s not provided to cause undue concern, but rather to raise awareness and to promote discussion with t he referring physician regarding the presence of other risk factors, in addition to dense breast tiss ue. The results of this mammography examination is provided to the patient and referring physician. T he patient should contact their referring physician if any questions or concerns exist regarding this report. PQRS compliance statement - Patient information was entered into a reminder system with a target due date for the next mammogram. "Our facility is accredited by the [employer] Mammography Program." Electronically signed by: Chuck Jaimes MD (12/02/2020 12:13 PM) [id number]
== END ==
LOC: MAMMO 07:46
PROVIDERS: ATTEND Family Medicine
DX: Z12.31 Encounter for screening mammogram for malignant neoplasm of breast (principal)
CPT/HCPCS: 77063; 77067

== ENCOUNTER → 2021-08-04 | Outpatient (CLI) | payer MEDICARE ==
--- NOTE | 2021-08-05 17:09 | CARD ---
MR#: [id number] Date of Study: 08/04/2021 Ordering Physician: CADY COTO, Referring Physician: CADY COTO Tech: Nory Rogers [facility] APPROVED REPORT EXAM: Two-dimensional and M-mode echocardiogram with Doppler and color Doppler. Other Information Quality : AverageHR: 86bpm Technically limited study due to body habitus and CABG. INDICATION Cardiac Disease: CAD 2D DIMENSIONS Left Atrium(2D)4.8 (1.6-4.0cm)IVSd1.0 (0.7-1.1cm) Aortic Root(2D)3.2 (2.0-3.7cm)LVDd5.1 (3.9-5.9cm) LVOT Diameter2.1 (1.8-2.4cm)PWd0.9 (0.7-1.1cm) LVDs3.9 (2.5-4.0cm)FS (%) 23.0 % SV55.7 mlLVEF(%)45.9 (>50%) Aortic Valve AoV Peak Ramu.138.7cm/sAoV VTI30.6cm AO Peak GR.7.7mmHgLVOT Peak Ramu.79.1cm/s AO Mean GR.4mmHgAVA (VMAX)1.91cm2 ALEX (VTI)2.00cm2 Mitral Valve MV E Vtgvkecm05.6cm/sMV DECEL [id number] MV A Fmaviwmi38.7cm/sE/A Ratio0.6 Pulmonary Valve PV Peak Gsdsdgpr31.4cm/s Tricuspid Valve TR P. Mbeonyox653kh/sRAP LPOETSCV9vsGc TR Peak Gr.63htVxCFOC81ojUw Pulmonary Vein S1 Jyeouars39.1cm/sD2 Ugeazszc91.6cm/s LEFT VENTRICLE The left ventricle is normal size. There is normal left ventricular wall thickness. The systolic func tion is mildly impaired. EF 40-45% Septal motion consistent with post-operative state. Otherwise, severo ssly normal wall motion. Tissue Doppler imaging reveals abnormal left ventricular diastolic dysfuncti on. No left ventricle thrombus noted on this study. There is no ventricular septal defect visualized. There is no left ventricular aneurysm. There is no mass noted in the left ventricle. RIGHT VENTRICLE The right ventricle is mildly dilated. There is normal right ventricular wall thickness. The right ve ntricular systolic function is normal. ATRIA The left atrium is moderately dilated. The right atrium is mildly dilated. The interatrial septum is intact with no evidence for an atrial septal defect or patent foramen ovale as noted on 2-D or Dopple r imaging. AORTIC VALVE The aortic valve is moderately calcified with restricted leaflet motion. Doppler and Color Flow revea led no significant aortic regurgitation. There is no significant aortic valvular stenosis. There is n o aortic valvular vegetation. MITRAL VALVE The mitral valve is normal in structure and function. There is no evidence of mitral valve prolapse. There is no mitral valve stenosis. Doppler and Color-flow revealed trace to mild mitral regurgitation . TRICUSPID VALVE The tricuspid valve is normal in structure and function. Doppler and Color Flow revealed trace to mil d tricuspid regurgitation. There is no tricuspid valve prolapse or vegetation. There is no tricuspid valve stenosis. PULMONIC VALVE Doppler and Color Flow revealed trace to mild pulmonic valvular regurgitation. There is no pulmonic v alvular stenosis. GREAT VESSELS The aortic root is normal in size. The ascending aorta is normal in size. The IVC is normal in size a nd collapses >50% with inspiration. PERICARDIAL EFFUSION There is no evidence of significant pericardial effusion. Critical Notification Critical Value: No <Conclusion> The systolic function is mildly impaired. EF 40-45% Septal motion consistent with post-operative state. Otherwise, grossly normal wall motion. Signed by : William Thurston, Electronically Approved : 08/05/2021 17:09:04
== END ==
LOC: ECHO 07:38
PROVIDERS: ATTEND Internal Medicine Cardiovascular Disease
DX: I08.8 Other rheumatic multiple valve diseases (principal); I25.10 Atherosclerotic heart disease of native coronary artery without angina pectoris
CPT/HCPCS: 93306; C8929